=== PATIENT | male | born 1985 | race African-American/Black ===

== ENCOUNTER 2022-12-05 20:02 | Emergency (ER) | payer SELFPAY ==
[~2022-12-05] VITALS: Ht 177.8 cm; Wt 89.5 kg
[2022-12-05 20:08] VITALS: TEMP 97.7
[2022-12-05 22:54] VITALS: BP 114/78; PULSE 76
== END 2022-12-05 22:55 | disposition home or self-care (01) ==
LOC: COL.ER 20:02
DX: S06.0XAA Concussion with loss of consciousness status unknown, initial encounter (principal); S00.03XA Contusion of scalp, initial encounter; F17.210 Nicotine dependence, cigarettes, uncomplicated; Z28.310 Unvaccinated for COVID-19; Y04.0XXA Assault by unarmed brawl or fight, initial encounter; Y92.481 Parking lot as the place of occurrence of the external cause; Y93.39 Activity, other involving climbing, rappelling and jumping off; Y99.0 Civilian activity done for income or pay

== ENCOUNTER 2024-02-03 02:47 | Inpatient (IN) | payer SELFPAY ==
[~2024-02-03] VITALS: Ht 180.3 cm; Wt 95.9 kg
[2024-02-03 03:15] LABS: BASO % 0.3 % (0.0-2.0); EOS # 0.1 K/mm3 (0.0-0.7); EOS % 0.5 % (0.0-4.0); GRAN # 9.4 K/mm3 (1.4-6.5); GRAN % 65.4 % (42.2-75.2); HEMATOCRIT 42.7 % (42.0-52.0); LYMPH # 3.3 K/mm3 (1.2-3.4); LYMPH % 22.7 % (20.0-51.0); MEAN CELL VOLUME 92 fl (80.0-100.0); MEAN CORPUSCULAR HEMOGLOBIN 32 pg (27-31); MEAN CORPUSCULAR HGB CONC 35 g/dl (33.0-37.0); MONO # 1.5 K/mm3 (0.1-0.6); MONO % 10.8 % (1.7-9.3); RED BLOOD COUNT 4.64 M/mm3 (4.20-5.60); REDCELL DISTRIBUTION WIDTH-CV 12.8 % (11.5-14.5)
[2024-02-03] MEDS ORDERED: NS 1,000 ML IV ONE (03:30)
[2024-02-03] MEDS ORDERED: Morphine 4 MG/ML VIAL IV PRN ×2 (03:30→03:45)
[2024-02-03] MEDS ORDERED: Ondansetron 4 MG/2 ML VIAL IV PRN ×3 (03:30→08:00)
[2024-02-03] MEDS ORDERED: Iohexol 300 - 100 ML VIAL IV ONE (03:33)
[2024-02-03] MEDS ORDERED: NS 50 ML IV ONE (03:34)
[2024-02-03 03:38] LABS: PLATELET COUNT 265 K/mm3 (130-400)
[2024-02-03 03:42] LABS: ALANINE AMINOTRANSFERASE 54 U/L (0-55); ALBUMIN 4.6 g/dL (3.5-5.0); ALKALINE PHOSPHATASE 104 U/L (40-150); ANION GAP 15 mmol/L (7-16); AST,SGOT 43 U/L (5-34); BILIRUBIN,TOTAL 0.4 mg/dL (0.2-1.2); BLOOD UREA NITROGEN 7 mg/dL (9-21); CALCIUM 10.4 mg/dL (8.4-10.2); CHLORIDE 101 mEq/L (98-107); CREATININE, serum 0.97 mg/dL (0.72-1.25); GLUCOSE 99 mg/dL (70-99); POTASSIUM 3.7 mEq/L (3.5-4.5); SODIUM 138 mEq/L (136-145); TOTAL PROTEIN 8.9 g/dl (6.2-8.1)
[2024-02-03 03:48] LABS: TROPONIN-I < 0.010 ng/mL (0.00-0.033)
[2024-02-03] MEDS ORDERED: MOTRIN 800800 MG/TAB PO (04:40)
[2024-02-03] MEDS ORDERED: AMOXICILLIN 8751 TAB PO (04:40)
[2024-02-03] MEDS ORDERED: PERCOCET 325 MG1 TA2 PO (04:40)
[2024-02-03] MEDS ORDERED: Ketorolac 15 MG/ML VIAL IV ONE (04:45)
[2024-02-03] MEDS ORDERED: cefTRIAXone 1 G in Water For Injection,Sterile 10 ML IV ONE (04:45)
[2024-02-03] MEDS ORDERED: Multivitamin TAB PO SCH (08:00)
[2024-02-03] MEDS ORDERED: Docusate Sodium 100 MG CAP PO PRN (08:00)
[2024-02-03] MEDS ORDERED: LORazepam 2 MG/ML 1 ML VIAL IV PRN (08:00)
[2024-02-03] MEDS ORDERED: Acetaminophen 325 MG TAB PO PRN (08:00)
[2024-02-03] MEDS ORDERED: Polyethylene Glycol 3350 17 GM PDS PO PRN (08:00)
[2024-02-03] MEDS ORDERED: Mag/Al Hydrox/Simeth Susp 30 ML CUP PO PRN (08:00)
[2024-02-03] MEDS ORDERED: LORazepam 1 MG TAB PO PRN (08:00)
[2024-02-03] MEDS ORDERED: NS 1,000 ML IV SCH (08:00)
--- NOTE | 2024-02-03 08:05 | NUR ---
Patient to room 305 from the ED by wheelchair. A&Ox4. VSS 2L NC O2. IV CDI. Denies pain and discomfort. Nurse oriented the patient to location, room and call light. Call light within reach.
[2024-02-03 08:08] VITALS: BP 131/84; PULSE 93; TEMP 98.2
[2024-02-03] MEDS ORDERED: D5NS & 20 mEq KCl 1,000 ML IV SCH (08:15)
[2024-02-03] MEDS ORDERED: Azithromycin 500 MG in NS 250 ML IV SCH (08:30)
[2024-02-03] MEDS ORDERED: Folic Acid 1 MG TAB PO SCH (09:00)
[2024-02-03] MEDS ORDERED: Thiamine 100 MG TAB PO SCH (09:00)
[2024-02-03 10:33] LABS: COLLECTION METHOD CLEAN CATCH
[2024-02-03 10:37] LABS: PH 5.5 (5.0-8.5); URINE APPEARANCE CLEAR (CLEAR/HAZY); URINE BLOOD NEGATIVE (NEGATIVE); URINE COLOR YELLOW (YELLOW); URINE GLUCOSE NEGATIVE (NEGATIVE); URINE KETONE NEGATIVE (NEGATIVE); URINE NITRATE NEGATIVE (NEGATIVE); URINE PROTEIN(semi-quant) NEGATIVE (NEGATIVE); URINE UROBILINOGEN 0.2 E.U/dL (0.2-1.0)
--- NOTE | 2024-02-03 11:10 | NUR ---
Manager Machine met with patient to complete initial intake. Patient lives alone in [place] and goes to [facility] for primary care. Patient gets his medications from [facility] and advised he does not have current insurance coverage. Patient is employed at [employer]. Patient does not use any DME, however is currently on oxygen. Patient is independent with ADLS and will return home at time of discharge. Patient does not have DPOA-HC. Patient is not and has a seven year old daughter that lives in [place]. Patient's legal next of kin is his mother, Mayela Grimm who also lives in [place]. Discharge Plan; Home
--- NOTE | 2024-02-03 12:31 | NUR ---
Data: Patient politely declined Environmental Monitoring Specialist visit offered during Environmental Monitoring Specialist rounds. Assessment: None. Plan of Care: Chaplains will remain available as needed/requested while Patient is admitted to this hospital.
[2024-02-03 12:41] LABS: TRICYCLIC ANTIDEPRESS URINE NEGATIVE (NEGATIVE)
[2024-02-03 12:58] VITALS: BP 126/85; PULSE 91; TEMP 98
[2024-02-03] MEDS ORDERED: TYLENOL 500MG500 MG PO (13:39)
[2024-02-03 16:57] VITALS: BP 134/90; PULSE 96; TEMP 98.4
--- NOTE | 2024-02-03 18:07 | NUR ---
Patient sitting up in bed, A&Ox4. VSS. RM air and tolerating well. Reports discomfort in left side chest. Pain medication given when requested. Call light within reach
[2024-02-03 20:12] VITALS: BP 143/96; PULSE 94; TEMP 97.4
--- NOTE | 2024-02-03 20:22 | NUR ---
PATIENT SITTING UP IN BED WATCHING TV. ALERT AND ORIENTED. SHIFT ASSESSMENT COMPLETE. TELEMETRY ON. PATIENT STATES TYLENOL IS HELPING LEFT LUNG PAIN. PATIENT DENIES NEEDS OR CONCERNS AT THIS TIME. CALL LIGHT WITHIN REACH.
[2024-02-03 21:00] VITALS: BP_SYST 143
[2024-02-03] MEDS ORDERED: cefTRIAXone 1 G in Water For Injection,Sterile 10 ML IV SCH (21:00)
[2024-02-04] VITALS: BP 132/90; PULSE 101; TEMP 98.5
[2024-02-04 00:26] VITALS: BP_SYST 132
[2024-02-04 04:00] VITALS: BP 146/99; PULSE 102; TEMP 99.1
--- NOTE | 2024-02-04 04:48 | NUR ---
ALLSION TACO MAKER NOTIFIED OF PATIENT'S MOST RECENT VS. CIWA SCORE CONINUES TO BE 0. NO NEW ORDERS AT THIS TIME.
[2024-02-04 04:58] VITALS: BP_SYST 146
[2024-02-04] MEDS ORDERED: FOLIC ACID 11 MG/TA1 PO (07:07)
[2024-02-04] MEDS ORDERED: THIAMINE 1100 MG/TAB PO (07:07)
[2024-02-04] MEDS ORDERED: MULTI VITAMINS1 TAB PO (07:07)
[2024-02-04 07:33] VITALS: BP 147/97; PULSE 94; TEMP 97.5
--- NOTE | 2024-02-04 08:00 | NUR ---
Patient laying in bed sleeping. Easily awakened with verbal command. A&Ox4. VSS. IV CDI. Reports pain in LF side, pain medication given when requested. Call light within reach
[2024-02-04 08:03] LABS: BASO % 0.3 % (0.0-2.0); EOS # 0.1 K/mm3 (0.0-0.7); EOS % 1.1 % (0.0-4.0); GRAN # 7.2 K/mm3 (1.4-6.5); GRAN % 65.1 % (42.2-75.2); HEMATOCRIT 38.7 % (42.0-52.0); LYMPH # 2.6 K/mm3 (1.2-3.4); LYMPH % 23.7 % (20.0-51.0); MEAN CELL VOLUME 95 fl (80.0-100.0); MEAN CORPUSCULAR HEMOGLOBIN 32 pg (27-31); MEAN CORPUSCULAR HGB CONC 34 g/dl (33.0-37.0); MEAN PLATELET VOLUME 9.6 fl (7.4-10.4); MONO % 9.4 % (1.7-9.3); PLATELET COUNT 239 K/mm3 (130-400); RED BLOOD COUNT 4.08 M/mm3 (4.20-5.60); REDCELL DISTRIBUTION WIDTH-CV 12.9 % (11.5-14.5)
[2024-02-04 08:22] LABS: CALCIUM 9.5 mg/dL (8.4-10.2); CREATININE, serum 0.83 mg/dL (0.72-1.25); POTASSIUM 3.8 mEq/L (3.5-4.5)
[2024-02-04] MEDS ORDERED: ZITHROMAX500 M2 PO (08:56)
[2024-02-04] MEDS ORDERED: PRINIVIL10 MG PO (08:57)
[2024-02-04] MEDS ORDERED: OMNICEF 300MG300 MG PO (08:57)
[2024-02-04] MEDS ORDERED: TOPROL XL 25MG25 MG PO (08:58)
[2024-02-04 09:16] LABS: CHOLESTEROL RISK RATIO 3.8
[2024-02-04] MEDS ORDERED: Lisinopril 10 MG TAB PO ONE (09:30)
--- NOTE | 2024-02-04 12:54 | NUR ---
Discharge paperwork reviewed with the patient. PAtient verbalized an understanding to follow doctors orders. Patient on waiting on ride home. No further needs expressed. Call light within reach
--- NOTE | 2024-02-04 14:10 | NUR ---
Cabinet Installer attended clinical rounds with the team and patient will discharge home today. STELLA met with patient to discuss hospital follow up. Patient is agreeable to have an appointment at [facility]. STELLA contacted [facility] and set up appointment for 02/17/24 at 1330. STELLA faxed records to [facility] for review.
--- NOTE | 2024-02-04 15:30 | NUR ---
IV removed, tip intact. Gauze and coban applied. PAtient ambulated independently with nursing staff to awaiting vehicle. No further needs expressed
== END 2024-02-04 15:30 | disposition home or self-care (01) | DRG 871 ==
LOC: COL.ER 02:47 → MEDICAL 07:00
PROVIDERS: Personal Emergency Response Attendant; Physician Assistant; ADMIT Hospitalist
DX: A41.9 Sepsis, unspecified organism (principal); J18.9 Pneumonia, unspecified organism; J96.01 Acute respiratory failure with hypoxia; I50.20 Unspecified systolic (congestive) heart failure; I11.0 Hypertensive heart disease with heart failure; F10.10 Alcohol abuse, uncomplicated; Y90.6 Blood alcohol level of 120-199 mg/100 ml; F17.210 Nicotine dependence, cigarettes, uncomplicated; Z20.822 Contact with and (suspected) exposure to COVID-19; N30.90 Cystitis, unspecified without hematuria; Z23 Encounter for immunization
CPT/HCPCS: J0456; J0696; J1650; J1885; J2270; J2405; J7030; J7050; Q9967

== ENCOUNTER 2024-07-28 21:31 | Emergency (ER) | payer SELFPAY ==
[~2024-07-28] VITALS: Ht 177.8 cm; Wt 96.8 kg
[~2024-07-28 21:31] MED LIST: AMOXICILLIN 8751 TAB PO; FOLIC ACID 11 MG/TA1 PO; MOTRIN 800800 MG/TAB PO; MULTI VITAMINS1 TAB PO; OMNICEF 300MG300 MG PO; PERCOCET 325 MG1 TA2 PO; PRINIVIL10 MG PO; THIAMINE 1100 MG/TAB PO; TOPROL XL 25MG25 MG PO; TYLENOL 500MG500 MG PO; ZITHROMAX500 M2 PO
[2024-07-28 21:41] VITALS: BP 135/81; TEMP 97.5
[2024-07-28] MEDS ORDERED: Tdap Vaccine 0.5 ML SYRINGE IM ONE (22:30)
[2024-07-28 23:15] VITALS: PULSE 89
== END 2024-07-28 23:15 | disposition home or self-care (01) ==
LOC: COL.ER 21:31
DX: S61.112A Laceration without foreign body of left thumb with damage to nail, initial encounter (principal); W26.0XXA Contact with knife, initial encounter